=== PATIENT | female | born 1965 | race Hispanic/Latino ===

== ENCOUNTER 2018-04-26 17:50 | Emergency (ER) | payer BC ==
[~2018-04-26] VITALS: Ht 157.5 cm; Wt 80.7 kg
[2018-04-26] MEDS ORDERED: LISINOPRIL-HCT1 EAC1 PO (18:34)
[2018-04-26] MEDS ORDERED: CLONIDINE HCL 0.2 MG TAB PO ONE (18:45)
--- NOTE | 2018-04-26 20:49 | Diagnostic Imaging Report ---
EXAMINATION: CXR 2 VIEW - HOPD INDICATION: 52-year-old female with high blood pressure, neck pain, cough COMPARISON: None FINDINGS: Frontal and lateral view of the chest TUBES and LINES: None. LUNGS: Lungs are well inflated. Lungs are clear. There is no evidence of pneumonia or pulmonary edema. PLEURA: No pleural effusion or pneumothorax. HEART AND MEDIASTINUM: The cardiomediastinal silhouette is unremarkable. BONES AND SOFT TISSUES: No acute osseous lesion. Bilateral breast implants. UPPER ABDOMEN: No free air under the diaphragm. IMPRESSION: No acute thoracic abnormality. Signed by: Angel Coats MD on 04/26/2018 8:45 PM
== END 2018-04-26 21:04 | disposition home or self-care (01) ==
LOC: FSED 17:50
DX: R50.9 Fever, unspecified (principal); R05 Cough; J20.9 Acute bronchitis, unspecified
CPT/HCPCS: 71046; 80053; 82553; 84484; 85025; 99284

== ENCOUNTER 2020-08-08 22:58 | Emergency (ER) | payer BC ==
[~2020-08-08] VITALS: Ht 160 cm; Wt 76.2 kg
[~2020-08-08 22:58] MED LIST: LISINOPRIL-HCT1 EAC1 PO
== END 2020-08-08 23:48 | disposition left against medical advice (07) ==
LOC: FSED 23:10
DX: R10.9 Unspecified abdominal pain (principal); K21.9 Gastro-esophageal reflux disease without esophagitis; I10 Essential (primary) hypertension